=== PATIENT | female | born 1985 | race Caucasian/White ===

== ENCOUNTER 2019-11-11 12:37 | Emergency (ER) | payer MEDICAID, OTHER ==
[~2019-11-11] VITALS: Ht 162.6 cm; Wt 101.6 kg
[~2019-11-11 12:37] MED LIST: FERR325E14 PO; IBUP-974 PO; PREN-385 PO
[2019-11-11 12:45] VITALS: BP 117/68
--- NOTE | 2019-11-11 13:00 | NUR ---
C/O VAGINAL BLEEDING X3 MONTHS. PT STATES SHE HAS A CONTROL IMPLANT IN HER LUE THAT IN FEBRUARY 2019 BUT SHE HAS NOT HAS IT REMOVED. PT STATES SHE ALSO HAS NOT BEEN ABLE TO URINATE MORE THAN A LITTLE AT A TIME BUT DENIES PAIN/FREQUENCY. PT STATES BLEEDING IS CONTROLLED AT THIS TIME, DOES NOT KNOW HOW MANY PADS SHE USES PER DAY.
[2019-11-11] MEDS ORDERED: KETOROLAC 30 MG/ML VIAL IM ONE (13:15)
--- NOTE | 2019-11-11 13:15 | NUR ---
DR. ARENAS AT BEDSIDE EVALUATING PT
--- NOTE | 2019-11-11 13:20 | NUR ---
PT RESTING IN BED, NO NEW NEEDS AT THIS TIME.
--- NOTE | 2019-11-11 14:10 | NUR ---
PT ASLEEP IN BED, NO NEW NEEDS AT THIS TIME
[2019-11-11 14:20] LABS: BASOPHILS % (AUTO) 0.2 % (0.0-2.0); EOSINOPHILS % (AUTO) 0.2 % (0.0-4.0); HEMATOCRIT 42.6 % (36-48); HEMOGLOBIN 14.2 g/dL (12.0-16.0); LYMPHOCYTES # (AUTO) 0.7 K/uL (2.5-16.5); LYMPHOCYTES % (AUTO) 4.2 % (20.5-51.1); MEAN CORPUSCULAR HEMOGLOBIN 31 pg (27-31); MEAN CORPUSCULAR HGB CONC 33 g/dL (33-37); MEAN CORPUSCULAR VOLUME 91.7 fL (80-94); MONOCYTES # (AUTO) 1.1 K/uL (0.8-1.0); MONOCYTES % (AUTO) 6.1 % (1.7-9.3); NEUTROPHILS # (AUTO) 15.3 K/uL (1.8-7.7); NEUTROPHILS % (AUTO) 89.3 % (42.2-75.2); PLATELET COUNT (AUTO) 272 K/uL (140-450); RED BLOOD CELL COUNT(AUTO) 4.65 MIL/uL (4.20-5.40); RED CELL DISTRIBUTION WIDTH 12.7 % (11.6-13.7); WHITE BLOOD COUNT (AUTO) 17.1 K/uL (4.8-10.8)
[2019-11-11 14:34] LABS: ALBUMIN 3.4 g/dL (3.4-5.0); ANION GAP 12.4 (8-16); CREATININE 0.7 mg/dL (0.6-1.3); POTASSIUM 3.4 mmol/L (3.5-5.1); TOTAL BILIRUBIN 0.5 mg/dL (0.0-1.0)
[2019-11-11 14:35] LABS: APPEARANCE,URINE CLEAR (CLEAR); BILIRUBIN,URINE 1+ (NEGATIVE); BLOOD, URINE 3+ (NEGATIVE); COLOR,URINE ORANGE (YELLOW); LEUKOCYTE ESTERASE ,URINE NEGATIVE (NEGATIVE); NITRITE, URINE NEGATIVE (NEGATIVE); UGLUCOSE NEGATIVE (NEGATIVE)
[2019-11-11] MEDS ORDERED: cefTRIAXone 1,000 MG in LIDOCAINE MPF 1% 2.1 ML IM ONE (15:00)
[2019-11-11] MEDS ORDERED: cefTRIAXone 1,000 MG VIAL ONE (15:11)
[2019-11-11] MEDS ORDERED: LIDOCAINE MPF 1% 5 ML ONE (15:12)
[2019-11-11 15:20] LABS: FINE GRANULAR CASTS,URINE 0-10 /LPF (None Seen)
[2019-11-11 15:24] VITALS: BP 118/70
--- NOTE | 2019-11-11 15:26 | NUR ---
Patient discharged with v/s stable. Written and verbal after care instructions given and explained. Patient alert, oriented and verbalized understanding of instructions. Ambulatory with steady gait. All questions addressed prior to discharge. ID band removed. Patient advised to follow up with PMD. Rx of KEFLEX, ZOFRAN, PROVERA given. Patient educated on indication of medication including possible reaction and side effects. Opportunity to ask questions provided and answered.
== END 2019-11-11 15:26 | disposition home or self-care (01) ==
LOC: MED 12:37
DX: N93.8 Other specified abnormal uterine and vaginal bleeding (principal); N39.0 Urinary tract infection, site not specified; Z79.899 Other long term (current) drug therapy
CPT/HCPCS: 36415; 76830; 80053; 81001; 81025; 85025; 96372; 99284; J0696; J1885; J2001; Q0092; 99285

== ENCOUNTER 2023-11-04 07:34 | Emergency (ER) | payer MEDICAID ==
[~2023-11-04] VITALS: Ht 165.1 cm; Wt 113.4 kg
[2023-11-04 07:38] VITALS: BP 125/68; PULSE 112; RESP 20; TEMP 98.3; O2SAT 99
[2023-11-04] MEDS ORDERED: NAPR-337 PO (07:48)
[2023-11-04] MEDS ORDERED: CEPH-588 PO (07:48)
== END 2023-11-04 07:52 | disposition home or self-care (01) ==
LOC: MED 07:34
DX: L03.115 Cellulitis of right lower limb (principal); Z79.1 Long term (current) use of non-steroidal anti-inflammatories (NSAID); Z79.899 Other long term (current) drug therapy; Z98.890 Other specified postprocedural states
CPT/HCPCS: 99284